=== PATIENT | male | born 1950 | race Caucasian/White ===

== ENCOUNTER 2016-11-12 10:27 | Day surgery (SDC) | payer MEDICARE, OTHER ==
[~2016-11-12 10:27] MED LIST: Buffered Lidocaine 1% SYRIN* 5 ML/SYR SYRINGE ONE; ceFAZolin 2 GM PREMIX(*) 2 GM/50 ML BAG IVPB ONE
[2016-11-12] MEDS ORDERED: Lidocain 1% EPI 1:100,000 * 30 ML MDV ONE ×2 (11:12→12:37)
[2016-11-12] MEDS ORDERED: fentaNYL* 50 MCG/ML 2 ML VIAL (100 MCG VIAL) ONE ×2 (11:56→12:38)
[2016-11-12] MEDS ORDERED: Propofol* 10 MG/ML 20 ML BTL IV PUSH ONE (11:57)
[2016-11-12] MEDS ORDERED: Midazolam* 1 MG/ML 2 ML VIAL (2 MG) ONE ×2 (11:57→12:23)
[2016-11-12] MEDS ORDERED: Iohexol 180 (CONTRAST) 10 ML SDV IV ONE (12:57)
--- NOTE | 2016-11-12 14:07 | RAD ---
Indication: Post RIGHT chest wall PowerPort placement. Assess for pneumothorax. Lymphoma. Comparison: October 29, 2016 PET/CT. Technique: Upright AP 1340 hours Report: Tip of the RIGHT chest port is at the level of the superior segment of the superior vena cava directed central. Negative for pneumothorax. Clear lungs and pleural spaces. The heart, pulmonary vasculature, and mediastinal contours are unremarkable. IMPRESSION: Negative for pneumothorax post RIGHT chest port placement. Tip of the RIGHT chest port is at the level of the superior segment of the superior vena cava directed central.
[2016-11-12 14:26] VITALS: BP 124/77
--- NOTE | 2016-11-12 15:19 | RAD ---
CPT II Codes: 6045F INDICATION: PowerPort placement. Fluoroscopic services provided for referring physician. 70.8 seconds of fluoroscopy time was used. 5 spot images of the chest demonstrates placement of a PowerPort with the tip in the superior vena cava. IMPRESSION: Fluoroscopic services provided for referring physician for PowerPort placement.
--- NOTE | 2016-11-13 06:04 | OP ---
CC: Cecil Lawson MD; Dr. Kip Broderick OPERATIVE REPORT: DATE OF PROCEDURE: 11/12/16 DATE OF : 48 SURGEON: Matt Higuera MD WELL PULLER HEAD: None. ANESTHESIOLOGIST: Dr. Benjamin. ANESTHESIA: Local MAC anesthesia. PRE-OP DIAGNOSIS: Esophageal cancer. POST-OP DIAGNOSIS: Esophageal cancer. OPERATIVE PROCEDURE: Insertion of PowerPort. ESTIMATED BLOOD LOSS: Minimal. FLUIDS: Minimal crystalloid fluid given. PORT: An 8-Gabonese PowerPort placed via the right subclavian vein. COMPLICATIONS: None. DESCRIPTION OF PROCEDURE: The patient was identified in the preoperative area, marked and brought t o the operating room and placed on the operating table in a supine position. Preoperative antibioti cs were given. Sequential devices were placed on bilateral lower extremities. Gentle sedation was given and the patient's right upper chest and neck were clipped of hair and then prepped and draped in a standard surgical fashion. A time-out was performed. Injection of lidocaine infraclavicularly was performed. The subclavian vein on the right was access ed. The wire was attempted to be inserted, noted to be curling within the vein and this was removed . Another access was then performed and a glidewire was inserted. It was able to be advanced into the superior vena cava under fluoroscopy. Next, the vein was dilated with the given dilators and a split- away catheter inserted. Next, the 8-Gabonese tubing was inserted and split-away catheter removed. Next, an incision inferior to this was made and a pocket made for the PowerPort. The tunnelling moi ce was utilized and tunneled from the pocket site to the tubing site. Tubing was then drawn in thro ugh this incision and cut to size and attached to the PowerPort. Under fluoroscopy, we did withdraw the tubing somewhat to identify the tip and we kept approximately 22 cm of tubing in. The PowerPort was then sutured into the pocket with 0 Surgipro sutures. The wound and port were the n irrigated and the port accessed and heparinized saline inserted. The original stick site was reapproximated with 4-0 Monocryl subcuticular sutures and the port site incision was reapproximated with 3-0 Polysorb sutures at the subcutaneous level followed by a 4-0 Mo nocryl subcuticular suture. Steri-Strips and sterile dressings were applied. The patient tolerated the procedure well and was transferred to the PACU in stable condition. Postop chest x-ray did rev eal that the tubing was placed in the proximal superior vena cava. Flow was good and the decision w as made to maintain this port at this time. [id number]/[facility] #: [id number]
== END 2016-11-12 14:30 | disposition home or self-care (01) ==
LOC: OR 10:27
PROVIDERS: ATTEND Surgery
DX: C15.5 Malignant neoplasm of lower third of esophagus (principal); Z87.891 Personal history of nicotine dependence; I10 Essential (primary) hypertension; R01.1 Cardiac murmur, unspecified; D56.3 Thalassemia minor
CPT/HCPCS: 71010; C1788; J0690; J1642; J2250; J2704; J3010

== ENCOUNTER 2018-11-10 19:33 | Inpatient (IN) | payer MEDICARE, OTHER ==
[2018-11-10] MEDS ORDERED: Magnesium Hydroxide LIQ* 30 ML UDC PO PRN (21:25)
[2018-11-10] MEDS ORDERED: Al Hydrox/Mg Hydrox/Simet LIQ* 30 ML UDC PO PRN (21:25)
[2018-11-10] MEDS ORDERED: Morphine 4 MG/ML VIAL (1 ml) 4 MG/ML VIAL IV PRN (21:25)
[2018-11-10] MEDS ORDERED: Acetaminophen TAB* 325 MG PO PRN (21:25)
[2018-11-10 22:23] LABS: Hematocrit 21 % (42-52); Mean Corpuscular HGB Conc 33 g/dL (31-36); Mean Corpuscular Hemoglobin 27 pg (27-31); Mean Corpuscular Volume 82 fL (80-94); Mean Platelet Volume 8.5 fL (7.4-10.4); Platelet Count 154 10^3/uL (150-450); Red Blood Count 2.62 10^6 /uL (4.18-5.48); Red Cell Distribution Width 19 % (10.5-15); White Blood Count 5.5 10^3/uL (3.5-10.8)
[2018-11-10 22:34] LABS: INR 1.19 (0.82-1.09)
[2018-11-10 22:38] LABS: ALT 9 U/L (7-52); AST 25 U/L (13-39); Albumin 2.8 g/dL (3.2-5.2); Albumin/Globulin Ratio 1.5 (1-3); Alkaline Phosphatase 97 U/L (34-104); BUN/Creatinine Ratio 14.8 (8-20); Blood Urea Nitrogen 43 mg/dL (6-24); CO2 Carbon Dioxide 22 mmol/L (22-32); Calcium 8.1 mg/dL (8.6-10.3); Chloride 110 mmol/L (101-111); EGFR African American 26.2 (>60); EGFR Non-African American 21.7 (>60); Globulin 1.9 g/dL (2-4); Glucose 111 mg/dL (70-100); Sodium 140 mmol/L (135-145); Total Protein 4.7 g/dL (6.4-8.9)
[2018-11-10 22:45] LABS: Anion Gap 8 mmol/L (2-11); Potassium 5.1 mmol/L (3.5-5.0)
[2018-11-10 22:46] LABS: Troponin I 2.08 ng/mL (<0.04)
[2018-11-10 22:53] LABS: ABS Lymphocytes 0.8 10^3/ul (1.0-4.8); ABS Monocytes 0.4 10^3/ul (0-0.8); ABS Neutrophils 4.7 10^3/ul (1.5-7.7); ABS Nucleated RBC 0.3 10^3/ul; Lymphocyte % 13.3 %; Nucleated Red Blood Cells % 5.4
[2018-11-11] MEDS ORDERED: Gabapentin CAP(*) 300 MG PO PRN (00:07)
--- NOTE | 2018-11-11 03:06 | HP ---
CC: Dr. Lawson HISTORY AND PHYSICAL: DATE OF ADMISSION/TRANSFER FROM [facility] FOR FURTHER HOSPITALIZATION: 11/10/18 PRIMARY CARE PROVIDER: Dr. Lawson REASON FOR TRANSFER: Elevated troponin. 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 At that point, he did not want to be transferred further to our facility. He was noted to have acute renal failure with creatinine of 2.7, urinalysis that was indicative of likely infection. He was treated with cefepime. He was tachycardiac and hypotensive on arrival. His hemoglobin was 4.9 and he received 2 units of packed red blood cells during the day on . His initial troponin was 0.04 and increased to 0.8 while staying at [facility]. Although the patient was asymptomatic, the provider at [facility] was concerned about the patient's cardiac status and requested a transfer to [facility] that occurred right after the patient's 2 unit of blood was transfused on 11/10/18. The patient arrived to ICU that evening. He currently feels comfortable. He denies any dizziness, no headache, no chest pain, no shortness of breath. PAST MEDICAL HISTORY: 1. 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 2. 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 3. Thalassemia minor with baseline hematocrit of about 40. 4. History of gout. 5. History of hypertension. 6. History of chronic back pain. 7. History of heart murmur ever since he was a teenager. ALLERGIES: Include HYDROCHLOROTHIAZIDE. CURRENT MEDICATIONS: From home include: 1. Meclizine 25 mg t.i.d. p.r.n. 2. Zofran 4 mg every 4 hours p.r.n. 3. Allopurinol 100 mg daily. 4. Aspirin 81 mg daily. 5. Fenofibrate 48 mg at bedtime. 6. Lipitor 10 mg q.a.m. 7. Gabapentin 300 mg 3 times a day. 8. Indomethacin 25 mg t.i.d. for gout, has not taken it recently. 9. Multivitamin 1 tablet daily. 10. Atenolol 200 mg daily. FAMILY HISTORY: Positive for niece with breast cancer. SOCIAL HISTORY: The patient lives alone. He names his sister as his healthcare proxy. Sister's name is Zaina Phipps. He has history of smoking 30-pack years, quit 19 years ago. He denies any alcohol or drug use. He is do not resuscitate. REVIEW OF SYSTEMS: Please see history of present illness. The patient stated that he had a similar presentation to [facility] approximately a month prior. At that point, he also had significant anemia and leukocytosis and was treated with empiric antibiotics and no source of infection was identified. The patient stated that he was told that his anemia is due to his chemotherapy. He has had black stools occasionally and he thought that it was due to his iron supplement that he takes occasionally. He has had melanotic stool for the past couple of days now. The patient stated that he has mild ankle edema in bilateral lower extremities and he uses MARISELA stockings for that. Due to his chemotherapy, he feels that he has no appetite and food does not taste well. He has lost weight for the past several months, but he could not quantify. 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 Currently, he denies shortness of breath or chest pain, but he has had problems with exercise tolerance recently and overall sensation of weakness and dizziness when standing up in past couple of days. All the remaining 12 systems were reviewed with the patient and were, otherwise , negative. PHYSICAL EXAMINATION GENERAL: The patient is a pleasant 68-year-old male who is in no acute distress. Alert, awake, and oriented x3. VITAL SIGNS: Blood pressure of 126/99, heart rate of 88 and regular, respiratory rate 17, oxygen saturation 100% on 3 L of oxygen nasal cannula, temperature of 97.1. HEENT: Head: Atraumatic, normocephalic. Eyes: Pupils are equal and reactive to light and accommodation. Oropharynx clear. Mucosa moist. NECK: Supple. No JVD. No bruits bilaterally. RESPIRATORY: Clear to auscultation bilaterally. CARDIOVASCULAR: Regular rate and rhythm with 3/6 systolic ejection murmur heard on auscultation of the right upper sternal border radiating to bilateral carotids. ABDOMEN: Soft, nontender. Bowel sounds present in all 4 quadrants. EXTREMITIES: There is trace bilateral ankle edema. Pulses are +2 bilaterally. No clubbing or cyanosis. NEUROLOGIC: On neuro evaluation, speech is clear. Cranial nerves II through XII grossly intact. Motor strength is 5/5 bilaterally. DIAGNOSTIC STUDIES/LAB DATA: Laboratory data showed white blood cell count of 5.5, hemoglobin of 7.0, hematocrit of 21, MCV of 82, and platelets of 154. The differential was unremarkable with 79% of neutrophils, 13 lymphocytes, 6 monocytes. INR was 1.19. Sodium was 140, potassium 5.1, chloride 110, carbon dioxide 22, BUN 43, creatinine 2.9. Liver function tests showed bilirubin of 1.1. AST of 25, ALT of 9, alkaline phosphatase of 97. The patient's troponin was 2.08. Lactic acid of 1.2. Some significant abnormalities from [facility] laboratory values showed lactic acid of 11 at admission. The patient's creatinine was 2.7, hemoglobin of 4.9, INR of 1.2, lactic acid of 11.5. The patient's portable chest x-ray obtained at [facility] was read as, "the lungs are clear, well aerated, mediastinal structures and hilar structures are normal. There is right subclavian vein central venous port with catheter which has developed loop in the catheter. Tip remains at the brachiocephalic junction level." The patient's EKG at [facility] showed normal sinus tachycardia with a heart rate of 97 beats per minute with left anterior fascicular block and no significant ST changes. Current EKG is pending at the time of dictation. ASSESSMENT AND PLAN: 1. The patient was hypotensive at [facility], was noted to have markedly elevated lactic acid, acute renal failure, abnormal urinalysis and white blood cell count of 13.14. He was diagnosed with severe sepsis at that point, treated with intravenous fluids and 2 units of packed red blood cell transfusion with good results and stabilization. The patient also was treated with cefepime. At this point, I will downgrade the patient's cefepime to ceftriaxone. We will await cultures obtained at [facility]. Currently, the patient is still hemodynamically stable, but once again the sepsis that was present at admission will be treated with ceftriaxone. 2. The patient has normocytic anemia that per the patient was related to his recent chemotherapy. Having said that, he has had melena occasionally for several days now. We will obtain stool Hemoccult. The patient is going to be placed on Protonix twice a day for the time being orally. We will check the patient's hemoglobin level in the morning. The patient received 2 units of packed red blood cells with good response with hemoglobin now up to 8. He is asymptomatic from cardiac standpoint. Although his troponins continued to still be positive, he also had acute renal failure, which likely is contributing to increase in troponin. At this point, I will not transfuse the patient anymore. I will await his claim clinician and oncologist's recommendations in the morning. 3. In regards to the patient's elevation of troponin, likely due to demand ischemia in combination with acute renal failure. Once again, so far he is asymptomatic from cardiac standpoint. We will obtain Echo, especially as the patient has significant heart murmur. Cardiology consult is going to be obtained in the morning. Aspirin is not going to be used due to history of melena as well as significant anemia. 4. The patient's acute renal failure. He had abnormal urinalysis at [facility]. He is going to be empirically treated with ceftriaxone and renal ultrasound is going to be obtained. It is possible that it is just related to ATN from hypotension and sepsis at admission. Please also note that the patient had no problems with urination whatsoever. 5. The patient's code status is do no resuscitate. 6. For DVT prophylaxis, due to the patient's significant anemia and history of melena, we will not start the patient on pharmacologic DVT prophylaxis but the patient is going to be placed on sequential compression devices. TIME SPENT: Approximately 80 minutes were spent on admission of this patient; more than half that time was spent [id number] with the patient during the interview and physical exam. [id number]/[facility] #: [id number] OREN
[2018-11-11 05:27] LABS: CO2 Carbon Dioxide 23 mmol/L (22-32); Calcium 8.1 mg/dL (8.6-10.3); Chloride 111 mmol/L (101-111); Sodium 140 mmol/L (135-145)
[2018-11-11 05:32] LABS: Anion Gap 6 mmol/L (2-11); BUN/Creatinine Ratio 19.1 (8-20); Blood Urea Nitrogen 49 mg/dL (6-24); EGFR African American 30.3 (>60); Glucose 99 mg/dL (70-100)
[2018-11-11 06:13] LABS: Troponin I 1.82 ng/mL (<0.04)
[2018-11-11 06:23] LABS: ABS Lymphocytes 0.7 10^3/ul (1.0-4.8); ABS Monocytes 0.3 10^3/ul (0-0.8); ABS Neutrophils 3.3 10^3/ul (1.5-7.7); ABS Nucleated RBC 0.1 10^3/ul; Hematocrit 21 % (42-52); Hemoglobin 6.7 g/dL (14.0-18.0); Lymphocyte % 15.9 %; Mean Corpuscular HGB Conc 33 g/dL (31-36); Mean Corpuscular Hemoglobin 26 pg (27-31); Mean Corpuscular Volume 81 fL (80-94); Mean Platelet Volume 8.4 fL (7.4-10.4); Nucleated Red Blood Cells % 3.3; Platelet Count 127 10^3/uL (150-450); Red Blood Count 2.53 10^6 /uL (4.18-5.48); Red Cell Distribution Width 20 % (10.5-15); White Blood Count 4.3 10^3/uL (3.5-10.8)
[2018-11-11] MEDS: NS 0.9% 1000 ML** 1,000 ML IV SCH (07:18)
[2018-11-11 07:24] LABS: Polychromasia 2+
[2018-11-11] MEDS: Atorvastatin* 10 MG TAB PO SCH (07:45)
[2018-11-11] MEDS: Allopurinol TAB* 100 MG PO SCH (07:45)
[2018-11-11] MEDS ORDERED: Pantoprazole TAB * 40 MG TAB PO SCH (09:00)
[2018-11-11] MEDS ORDERED: ATENOLOL 100 MG PO SCH (09:00)
[2018-11-11] MEDS ORDERED: ATENOLOL 200 MG PO SCH (09:00)
[2018-11-11] MEDS ORDERED: Atenolol TAB* 50 MG PO SCH (09:00)
--- NOTE | 2018-11-11 09:27 | PN ---
Progress Note - Progress Note Date of Service: 11/11/18 SOAP: Subjective: feels much better since getting blood. never had any chest pain. gets some midesophageal pain upon drinking cold stuff. reports he "only gets black stools " when he needs blood transfusions in the hospital. had a similar event last month at [facility]. he is on ramicurumab and taxol, last treated 11/02. Objective: Vital Signs Temp Pulse Resp BP Pulse Ox 97.7 F 74 17 143/82 100 11/11/18 07:29 11/11/18 09:00 11/11/18 09:00 11/11/18 09:00 11/11/18 09:00 perr eomi op moist CTA bl s1 s2 IV/ LUIS MIGUEL RUSB soft nt +Bs no le edema port right upper chest wall A+O x 3, nonfocal neurological exam Laboratory Results - last 24 hr 11/10/18 11/10/18 11/10/18 22:04 22:04 22:04 WBC 5.5 RBC 2.62 L Hgb 7.0 L Hct 21 L MCV 82 MCH 27 MCHC 33 RDW 19 H Plt Count 154 MPV 8.5 Neut % (Auto) 79.6 Lymph % (Auto) 13.3 [place] % (Auto) 6.6 Eos % (Auto) 0.0 Baso % (Auto) 0.5 Absolute Neuts (auto) 4.7 Absolute Lymphs (auto) 0.8 L Absolute Monos (auto) 0.4 Absolute Eos (auto) 0.0 Absolute Basos (auto) 0.0 Absolute Nucleated RBC 0.3 Nucleated RBC % 5.4 Polychromasia Anisocytosis INR (Anticoag Therapy) 1.19 H APTT 31.0 Sodium 140 Potassium 5.1 H Chloride 110 Carbon Dioxide 22 Anion Gap 8 BUN 43 H Creatinine 2.90 H Est GFR ( Amer) 26.2 Est GFR (Non-Af Amer) 21.7 BUN/Creatinine Ratio 14.8 Glucose 111 H Lactic Acid Calcium 8.1 L Total Bilirubin 1.10 H AST 25 ALT 9 Alkaline Phosphatase 97 CK-MB (CK-2) 9.0 H Troponin I 2.08 H* Total Protein 4.7 L Albumin 2.8 L Globulin 1.9 L Albumin/Globulin Ratio 1.5 11/10/18 11/11/18 11/11/18 22:04 04:46 06:10 WBC RBC Hgb Hct MCV MCH MCHC RDW Plt Count MPV Neut % (Auto) Lymph % (Auto) [place] % (Auto) Eos % (Auto) Baso % (Auto) Absolute Neuts (auto) Absolute Lymphs (auto) Absolute Monos (auto) Absolute Eos (auto) Absolute Basos (auto) Absolute Nucleated RBC Nucleated RBC % Polychromasia Anisocytosis INR (Anticoag Therapy) APTT Sodium 140 Potassium TNP TNP Chloride 111 Carbon Dioxide 23 Anion Gap 6 BUN 49 H Creatinine 2.56 H Est GFR ( Amer) 30.3 Est GFR (Non-Af Amer) 25.0 BUN/Creatinine Ratio 19.1 Glucose 99 Lactic Acid 1.2 Calcium 8.1 L Total Bilirubin AST ALT Alkaline Phosphatase CK-MB (CK-2) Troponin I 1.82 H* Total Protein Albumin Globulin Albumin/Globulin Ratio 11/11/18 06:10 WBC 4.3 RBC 2.53 L Hgb 6.7 L Hct 21 L MCV 81 MCH 26 L MCHC 33 RDW 20 H Plt Count 127 L MPV 8.4 Neut % (Auto) 77.2 Lymph % (Auto) 15.9 [place] % (Auto) 6.6 Eos % (Auto) 0.0 Baso % (Auto) 0.3 Absolute Neuts (auto) 3.3 Absolute Lymphs (auto) 0.7 L Absolute Monos (auto) 0.3 Absolute Eos (auto) 0.0 Absolute Basos (auto) 0.0 Absolute Nucleated RBC 0.1 Nucleated RBC % 3.3 Polychromasia 2+ Anisocytosis 2+ INR (Anticoag Therapy) APTT Sodium Potassium Chloride Carbon Dioxide Anion Gap BUN Creatinine Est GFR ( Amer) Est GFR (Non-Af Amer) BUN/Creatinine Ratio Glucose Lactic Acid Calcium Total Bilirubin AST ALT Alkaline Phosphatase CK-MB (CK-2) Troponin I Total Protein Albumin Globulin Albumin/Globulin Ratio Acetaminophen (Tylenol Tab*) 650 mg PO Q4H PRN PRN Reason: FEVER/PAIN Al Hydrox/Mg Hydrox/Simethicone (Maalox Plus*) 30 ml PO Q6H PRN PRN Reason: INDIGESTION Allopurinol (Zyloprim Tab*) 100 mg PO DAILY [facility] Last Admin: 11/11/18 07:45 Dose: 100 mg Atenolol (Tenormin Tab*) 200 mg PO DAILY [facility] Last Admin: 11/11/18 07:45 Dose: 200 mg Atorvastatin Calcium (Lipitor*) 10 mg PO QAM [facility] Last Admin: 11/11/18 07:45 Dose: 10 mg Fenofibrate (Tricor(Nf)) 48 mg PO BEDTIME [facility] Gabapentin (Neurontin Cap(*)) 300 mg PO TID PRN PRN Reason: PAIN - BACK Sodium Chloride (Ns 0.9% 1000 Ml) 1,000 mls @ 75 mls/hr IV PER RATE [facility] Last Admin: 11/11/18 07:18 Dose: 75 mls/hr Magnesium Hydroxide (Milk Of Magnesia Liq*) 30 ml PO Q4H PRN PRN Reason: CONSTIPATION Morphine Sulfate (Morphine 4 Mg/Ml Vial (1 Ml)) 1 mg IV Q4H PRN PRN Reason: PAIN - MILD Pantoprazole Sodium (Protonix Tab*) 40 mg PO BID [facility] Last Admin: 11/11/18 07:45 Dose: 40 mg Assessment: 68 yo M w remote DLBCL now with metastatic esophageal CA on Taxol/Ramicurumab a/ w weakness and a Hb of 4.9, with +troponins now trending down and no chest pain. He is having black stools and I am most suspicious for a GI bleed in the setting of a VEGF inhibitor. Plan: -NPO -IV PPI -GI consult -cardiology consult (cont bblcoker, statin, no ASA given bleeding) -stop abx, no sign of infection, suspect lactic acidosis from severe anemia and hypotension -transfuse 2 U prbc today with goal Hb of 9 given demand ischemia ARF: prerenal azotemia from anemia, though watch for signs of ATN from hypotension/ hypovolemia -blood and hydration DNR no dvt prophylaxis with bleeding cont IVU management
--- NOTE | 2018-11-11 10:40 | CONSULT ---
Subjective Date of Service: 11/11/18 Interval History: Admission Date: 11/10/18 Consult date: 11/11/2018 Service: Hospitalist CC: Weakness, dizziness Reason for consult: Elevated troponin level HISTORY OF PRESENT ILLNESS: Rayshawn Nevarez is a 68-year-old man with a history as below. He states unless it is day 15 of his chemo cycle he usually feels pretty good. When he is feeling well he can go up and down the stairs to the basement to do laundry twice in a row and would only be limited by back pain and can do without dyspnea or chest discomfort. He presented to [facility] and was found with severe anemia 4.9 hgb, PRASANNA with a creatinine of 2.7, intitial lactic acid of over 11 and a troponin which balaji eventually to ~ 2. He was transfused and is now asymptomatic. He denies any associated dyspnea or chest discomfort. Other than HTN and a cardiac murmur he has no prior cardiac history. He is noted to have dark stools. PAST MEDICAL HISTORY: 1. 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 2. 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 3. Thalassemia minor with baseline hematocrit of about 40. 4. History of gout. 5. History of hypertension. 6. History of chronic back pain. 7. History of heart murmur ever since he was a teenager. ALLERGIES: Include HYDROCHLOROTHIAZIDE. FAMILY HISTORY: Positive for niece with breast cancer. SOCIAL HISTORY: The patient lives alone. He names his sister as his healthcare proxy. Sister's name is Zaina Phipps. He has history of smoking 30-pack years, quit 19 years ago. He denies any alcohol or drug use. He is do not resuscitate. Medications Active Medications: Acetaminophen (Tylenol Tab*) 650 mg PO Q4H PRN PRN Reason: FEVER/PAIN Al Hydrox/Mg Hydrox/Simethicone (Maalox Plus*) 30 ml PO Q6H PRN PRN Reason: INDIGESTION Allopurinol (Zyloprim Tab*) 100 mg PO DAILY [facility] Last Admin: 11/11/18 07:45 Dose: 100 mg Atenolol (Tenormin Tab*) 200 mg PO DAILY [facility] Last Admin: 11/11/18 07:45 Dose: 200 mg Atorvastatin Calcium (Lipitor*) 10 mg PO QAM [facility] Last Admin: 11/11/18 07:45 Dose: 10 mg Fenofibrate (Tricor(Nf)) 48 mg PO BEDTIME [facility] Gabapentin (Neurontin Cap(*)) 300 mg PO TID PRN PRN Reason: PAIN - BACK Sodium Chloride (Ns 0.9% 1000 Ml) 1,000 mls @ 75 mls/hr IV PER RATE [facility] Last Admin: 11/11/18 07:18 Dose: 75 mls/hr Magnesium Hydroxide (Milk Of Magnesia Liq*) 30 ml PO Q4H PRN PRN Reason: CONSTIPATION Morphine Sulfate (Morphine 4 Mg/Ml Vial (1 Ml)) 1 mg IV Q4H PRN PRN Reason: PAIN - MILD Pantoprazole Sodium (Protonix Tab*) 40 mg PO BID [facility] Last Admin: 11/11/18 07:45 Dose: 40 mg Home Medications: Allopurinol TAB* [Zyloprim 100 MG TAB*] 100 mg PO DAILY 09/16/16 [History Confirmed 11/10/18] Aspirin 81 mg CHEW TAB* 81 mg PO DAILY 09/16/16 [History Confirmed 11/10/18] Atorvastatin* [Lipitor 10 MG*] 10 mg PO QAM 09/16/16 [History Confirmed 11/10/18 ] Fenofibrate(NF) [Tricor(NF)] 48 mg PO BEDTIME 09/16/16 [History Confirmed ] Gabapentin CAP(*) [Neurontin 300 CAP(*)] 300 mg PO TID PRN 09/16/16 [History Confirmed 11/10/18] Indomethacin CAP* [Indocin CAP*] 25 mg PO TID PRN 11/09/16 [History Confirmed ] Multiple Vitamin 50+ 1 tab PO DAILY 11/09/16 [History Confirmed 11/10/18] Atenolol [Tenormin 100 MG] 200 mg PO DAILY 11/10/18 [History Confirmed 11/10/18] Meclizine HCl [Eql Motion Sickness Relie] 25 mg PO TID PRN 11/10/18 [History Confirmed 11/10/18] Ondansetron [Ondansetron Odt] 4 mg PO Q4HR PRN 11/10/18 [History Confirmed 11/10] Review of Systems - Measurements Intake and Output: Intake and Output Last 24 Hours 11/09/18 11/10/18 11/11/18 11/12/18 06:59 06:59 06:59 06:59 Intake Total 320 250 Output Total 350 Balance 320 -100 Weight 214 lb Intake: Oral 320 250 Output: Urine 200 Liquid Stool 150 - Review of Systems Constitutional Symptoms: Positive: Weakness, Fatigue Negative: Weight Gain, Weight Loss Dermatology: Negative: Rash, Skin Lesions HEENT: Negative: Change in Hearing, Vertigo Eyes: Negative: Change in Vision, Double Vision Thyroid: Negative: Thyroid Nodule, Cold Intolerance, Heat Intolerance Pulmonary: Negative: Cough, Sputum, Hemoptysis Cardiology: Positive: Faintness Negative: Chest Pain, Shortness of Breath, Palpitations, Swelling of Ankles, Peripheral Vascular Dis, Edema, Syncope, Claudication, Paroxysmal Nocturnal Dyspnea, Orthopnea Gastroenterology: Negative: Abdominal Pain, Heartburn, Constipation, Diarrhea Genital - Urinary: Negative: Dysuria, Hematuria Musculoskeletal: Negative: Joint Stiffness, Arthritis Endocrinology: Positive: Obesity Negative: Polydipsia, Polyuria Hematologic/Lymphatic: Positive: Anemia, Use of Antiplatelet Drugs Negative: Hx Leukemia, Hx Lymphoma, Use of Anticoagulant Neurology: Negative: Diplopia, Dizziness, Hx of Stroke\TIA, Hx Seizures Psychiatry: Negative: Unusual Anxiety, Suicidal Ideation Allergic/Immunologic: Negative: Hx Anaphylaxis, Hx Angioedema, Hx HIV, Immunocompromise Review of Systems Statement: All other review of systems negative, unless stated above. Objective Vital Signs: Temp Pulse Resp BP Pulse Ox 97.7 F 78 17 134/72 100 11/11/18 07:29 11/11/18 10:06 11/11/18 10:17 11/11/18 10:06 11/11/18 10:06 Oxygen Devices in Use Now: Nasal Cannula Appearance: pale, nad, very pleasant Ears/Nose/Mouth/Throat: Clear Oropharnyx, Mucous Membranes Moist Neck: NL Appearance and Movements; NL JVP, Trachea Midline Respiratory: Symmetrical Chest Expansion and Respiratory Effort, Clear to Auscultation Cardiovascular: RRR, No Edema, - - 3/6 systolic murmur, soft s2 Abdominal: - - soft, obese, nontender Extremities: No Clubbing, Cyanosis Skin: No Rash or Ulcers Neurological: Alert and Oriented x 3 Laboratory Results: 11/11/18 06:10 11/11/18 09:20 cr this admission 2.9 down to 2.56 INR (Anticoag Therapy) 1.19 (0.82-1.09) H 11/10/18 22:04 APTT 31.0 seconds (26.0-36.3) 11/10/18 22:04 Total Bilirubin 1.10 mg/dL (0.2-1.0) H 11/10/18 22:04 AST 25 U/L (13-39) 11/10/18 22:04 ALT 9 U/L (7-52) 11/10/18 22:04 Alkaline Phosphatase 97 U/L (34-104) 11/10/18 22:04 CK-MB (CK-2) 9.0 ng/mL (0.6-6.3) H 11/10/18 22:04 Total Protein 4.7 g/dL (6.4-8.9) L 11/10/18 22:04 Albumin 2.8 g/dL (3.2-5.2) L 11/10/18 22:04 Globulin 1.9 g/dL (2-4) L 11/10/18 22:04 Albumin/Globulin Ratio 1.5 (1-3) 11/10/18 22:04 11/10/18 11/11/18 22:04 04:46 Troponin I 2.08 H* 1.82 H* EKG Data: ekg this AM NSR, old IWMI criteria, non-specific st/t changes Assessment/Plan 1. Severe chemotherapy related anemia - ? 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 Multisystem organ dysfunction - Secondary to #1 - PRASANNA, symptomatic cerebral hypoperfusion, lactic acidosis, myocyte injury as evidenced by an asymptomatic elevated troponin (vs. less likely but possible type 2 MT). Clinical presentation not consistent with a type 1 plaque disruption MT. - Suspect degree of myocardial injury overestimated by degree of renal insufficiency, ck-mb only 9, valvular heart disease could be contributing. 3. Cardiac murmur, suspect - May be louder and more clinically significant than baseline due to anemia. 4. HTN 5. Dyslipidemia Ok to hold aspirin for now Would try to keep hgb closer to ~ 9 Repeat EKG tomorrow Echo tomorrow Would focus acutely on anemia evaluation and treatment Thank you for allowing me to participate in the cardiovascular care of this patient. Please do not hesitate to contact me with questions or concerns.
[2018-11-11] MEDS ORDERED: fentaNYL* 50 MCG/ML 2 ML VIAL (100 MCG VIAL) ONE (16:34)
[2018-11-11] MEDS ORDERED: Midazolam* 1 MG/ML 10 ML VIAL (10 MG) ONE (16:34)
[2018-11-11] MEDS ORDERED: Pantoprazole IV* 40 MG IV ONE (18:16)
[2018-11-11 18:19] LABS: Hematocrit 27 % (42-52); Hemoglobin 8.6 g/dL (14.0-18.0)
--- NOTE | 2018-11-11 18:24 | CONS ---
CC: Dr. Sanjuanita Kelly; Dr. Matt Varela * CONSULTATION REPORT: DATE OF CONSULT: 11/11/18 REASON FOR CONSULT: Anemia, melena. HISTORY OF PRESENT ILLNESS: This is a very pleasant 68-year-old male with a past medical history of metastatic esophageal cancer, on Taxol and ramucirumab, who presented to [place] with dizziness and lightheadedness. He admits to dark stools at times. Denies any gross hematochezia. Denies any dysphagia or odynophagia. He was found to have a hemoglobin of 4.9 in [place], initially refused transfer; however, after a little bit of time, was agreeable to transfer for further workup. He was found to have renal insufficiency and demand -based ischemia. He was transferred to the ICU at [facility] for further management. His esophageal cancer was initially diagnosed in [address] Muro on endoscopy. He also has a history of diffuse large cell B lymphoma and thalassemia minor. He denies any abdominal pain. He states that his swallowing has been good. Once in a while if he eats a large piece of bread or food, he may have a little bit of difficulty, but he has had no fluid bolus or impactions. He is able to eat grossly normal diet without issue. He has been losing weight over the last month or two. He states that his appetite has not been quite the best over this time. He denies any diarrhea or constipation. Denies any nausea or emesis. He states at this point, he does not feel lightheaded or dizzy, and feels more appropriate at his baseline. Of note, his regimen was changed with the addition of a VEGF inhibitor recently. He denies any chest pain or dyspnea. The remainder of the 14-point review of systems is grossly negative. PAST MEDICAL HISTORY: 1. Esophageal cancer diagnosed in 2017 with metastasis to the liver. 2. Stage IV diffuse large B cell lymphoma in the past, status post R-CHOP. 3. History of thalassemia minor. 4. History of gout. 5. History of hypertension. 6. History of chronic back pain. HOME MEDICATIONS: Include: 1. Meclizine. 2. Zofran. 3. Allopurinol. 4. Aspirin. 5. Fenofibrate. 6. Lipitor. 7. Gabapentin. 8. Indomethacin. 9. Multivitamin. 10. Atenolol. ALLERGIES: Include HYDROCHLOROTHIAZIDE. FAMILY HISTORY: No family history of esophageal cancer or colorectal cancer. SOCIAL HISTORY: Healthcare proxy is his sister, Zaina Phipps. Prior smoking history, but quit 19 years ago. He denies any alcohol or drug use. REVIEW OF SYSTEMS: The remainder of the 14-point review of systems is grossly negative. OBJECTIVE: Vital Signs: Blood pressure is 131/64, pulse is 66, respiratory rate 14, he is 100% on room air. In general, he is alert and oriented x3, in no acute distress. HEENT: Atraumatic, normocephalic. Pupils equal, round, reactive to light. Extraocular movements are intact. Conjunctivae are pink. Neck: Supple. Trachea midline. Cardiovascular: S1 and S2. Systolic ejection murmur is appreciated. Abdomen: Soft, nontender. Bowel sounds positive. No guarding or rebound. Port appreciated on the right upper chest wall. Extremities: No clubbing. No cyanosis. No edema. Psych: Appropriate mood and affect. Skin: No gross ecchymosis noted or rash. DIAGNOSTIC STUDIES/LAB DATA: Hemoglobin at [place] was 4.9, on arrival to [facility] hemoglobin was 7.0, today was 6.7; platelet count is 127. INR 1.19. BUN 49, creatinine 2.56. Total bilirubin 1.10, AST 25, ALT is 9. Troponin I was 1.82, CK- MB is 9, CRP is 12, albumin is 2.8. Prior PET CT in September 2018 reveals hypermetabolic activity at the GE junction and cardia, prominent lymph node inferior to the GE junction, 3 hypermetabolic lesions in the liver which were improved from a prior study. Bilateral renal calculi and prominent right inguinal hernia. ASSESSMENT AND PLAN: This is a 68-year-old male with stage IV esophageal cancer , on a VEGF inhibitor, who is presenting with melena and anemia. 1. Acute blood loss anemia. We will plan on emergent upper endoscopy to rule out an upper gastrointestinal bleed. He is on a VEGF inhibitor which can increase the risk of arteriovenous malformations and bleeding. We discussed that if there is bleeding from the tumor, this can be difficult to control given the friability of the tumor; of there is a distinct ulceration or arteriovenous malformation, this will be easier to treat. Discussed the risks, benefits and alternatives to upper endoscopy and the patient would like to proceed. I discussed the case with Dr. Varela, the air brake adjuster, who saw the patient in consultation and felt to be as appropriate risk for upper endoscopy today. He has new thrombocytopenia. His previous platelet count has been in the 200s with a few dabbles below over the last 6 months. This is of unclear significance at this point. I recommend continuing to monitor H and H every 6 hours. Keep 2 units of PRBCs on hold at all times. Transfuse p.r.n. for goal above 7, perhaps higher with myocardial demand, 9 may be more appropriate; however, would defer to primary team. 2. History of stage IV esophageal cancer. The patient is able to swallow at this time. No signs of obstruction. 3. DNR status. The patient is in agreement to temporary suspend for procedure. [id number]/[facility] #: [id number] MTDD
--- NOTE | 2018-11-11 18:32 | PN ---
Progress Note - Progress Note Date of Service: 11/11/18 Note: GI EGD Note E: distal esophagus with large deep ulceration and nodular mass at GEJ. No active bleeding but residual old blood. LES patent G: large clot in gastric cardia, vigorously suctioned, but still limited views. Body and fundus with gastropathy and superficial erosions. No fresh blood. Old blood present. Non bleeding clean based 1cm gastric antral ulcer. treated with endoclip with great effect. no bleeding. D: 0.5 clean based ulceration in bulb. no fresh or old blood. Rec: Unclear if bled from ulcers vs. GEJ tumor. Will start on PPI drip bolus 80mg iv x 1 Monitor h/h transfuse PRN hemodynamics good if bleeding from tumor endoscopically very limited options. updated sister at bedside Discussed with Dr. Kelly. Mark Anthony Christie 11/11/18 [id number]
[2018-11-11] MEDS: Pantoprazole* 80 mg IN NS 80 MG/250 ML BAG IVPB SCH (19:20)
--- NOTE | 2018-11-11 20:51 | PRO ---
CC: Dr. Sanjuanita Kelly * EGD REPORT: DATE OF PROCEDURE: 11/11/18 PRIMARY ONCOLOGIST: Sanjuanita Kelly MD. INDICATION FOR PROCEDURE: Acute blood loss anemia, history of esophageal cancer. PROCEDURE PERFORMED: Complete esophagogastroduodenoscopy with hemostasis and Endo Clip placement. MEDICATIONS GIVEN: Include 10 mg IV midazolam, 25 mcg IV fentanyl. DESCRIPTION OF PROCEDURE: After the EGD procedure including the risks, benefits , and alternatives with the risks not limited to perforation, surgery, missed lesions and/or were explained to the patient, written informed consent was obtained, IV medication was given, and a bite block was placed between the teeth. The adult Olympus gastroscope was then inserted into the patient's oropharynx into the tubular esophagus. The upper portion of the esophagus was normal in appearance. To the distal 10 cm, there was large circumferential ulceration with a nodular mass at the GE junction; a few of these ulcerations were quite deep into the esophageal tissue. No active bleeding but some residual old blood was scattered throughout. The lower esophageal sphincter was patent with the scope easily traversing this area. Once in the stomach, a large clot was present in the gastric cardia. This was vigorously suctioned for over 30 to 40 minutes to reduce its volume and size. Despite this, some views are still limited in the gastric cardia, but no distinct ulceration was seen. The body and fundus of the stomach were with gastropathy and superficial erosions. No fresh blood was noted. Old blood again scattered throughout. A 1 cm clean based nonbleeding ulcer was in the antrum. This was treated with Endo Clip x1 with great effect. No bleeding post clip placement. The scope was advanced through a patent pylorus into the duodenal bulb. A small 0.5 cm clean based ulceration was noted. There was no fresh blood or old blood. I then advanced the endoscope through the C loop and the distal duodenum and pushed it as deep as I could. There was no further evidence of any fresh or old blood and no other ulcerations were noted. The scope was then removed from the patient. He tolerated the procedure well. He returned to the recovery room in stable condition. IMPRESSION: 1. Complete esophagogastroduodenoscopy with hemostasis and Endo Clip placement. 2. Gastric ulcer and duodenal ulcers, clean based, status post Endo Clip placement on large gastric ulcer. 3. No fresh bleeding, extensive residual clot throughout the stomach. 4. Large deep ulcerations within the distal esophagus and nodular mass at the GE junction; however, the LES does remain patent. RECOMMENDATIONS: Unclear if the bleed was from the ulcers or his GE junction tumor and associated ulcerations. At this point, there is no active bleeding. I will start the patient on an IV pantoprazole drip and give a bolus of 80 mg IV x1 now. Continue to monitor the H and H per cellophane worker's protocol, transfuse p.r.n. His current hemodynamics are good. If this is bleeding from the tumor, endoscopically there are very limited options for this. I updated his sister at the bedside and also updated Dr. Kelly with the findings. A copy of the photograph is in the chart. [id number]/[facility] #: [id number] [facility]OVE HOSPITALJayla
[2018-11-11] MEDS ORDERED: FENOFIBRATE 48 MG PO SCH (21:00)
[2018-11-11] MEDS ORDERED: Magnesium Sulfate 1 GM IV* 1 GM/100 ML BAG IV ONE (22:11)
[2018-11-11 23:39] LABS: Hematocrit 29 % (42-52); Hemoglobin 9.7 g/dL (14.0-18.0); Mean Corpuscular HGB Conc 33 g/dL (31-36); Mean Corpuscular Hemoglobin 29 pg (27-31); Mean Corpuscular Volume 86 fL (80-94); Mean Platelet Volume 8.2 fL (7.4-10.4); Platelet Count 102 10^3/uL (150-450); Red Blood Count 3.42 10^6 /uL (4.18-5.48); Red Cell Distribution Width 19 % (10.5-15); White Blood Count 3.2 10^3/uL (3.5-10.8)
[2018-11-11 23:55] LABS: BUN/Creatinine Ratio 29.1 (8-20); Calcium 8.1 mg/dL (8.6-10.3); EGFR African American 55.7 (>60); Magnesium 1.8 mg/dL (1.9-2.7); Potassium 4.1 mmol/L (3.5-5.0)
[2018-11-12 05:21] LABS: ABS Lymphocytes 0.5 10^3/ul (1.0-4.8); ABS Monocytes 0.3 10^3/ul (0-0.8); ABS Neutrophils 2.1 10^3/ul (1.5-7.7); ABS Nucleated RBC 0.1 10^3/ul; Eosinophil % 0.5 %; Hematocrit 30 % (42-52); Hemoglobin 9.5 g/dL (14.0-18.0); Lymphocyte % 18.9 %; Mean Corpuscular HGB Conc 32 g/dL (31-36); Mean Corpuscular Hemoglobin 28 pg (27-31); Mean Corpuscular Volume 87 fL (80-94); Mean Platelet Volume 8.4 fL (7.4-10.4); Nucleated Red Blood Cells % 4.1; Platelet Count 91 10^3/uL (150-450); Red Blood Count 3.38 10^6 /uL (4.18-5.48); Red Cell Distribution Width 19 % (10.5-15); White Blood Count 2.9 10^3/uL (3.5-10.8)
[2018-11-12 05:36] LABS: Albumin 2.5 g/dL (3.2-5.2); Albumin/Globulin Ratio 1.4 (1-3); BUN/Creatinine Ratio 29.8 (8-20); Calcium 7.8 mg/dL (8.6-10.3); EGFR African American 65.6 (>60); EGFR Non-African American 54.3 (>60); Globulin 1.8 g/dL (2-4); Total Bilirubin 0.9 mg/dL (0.2-1.0); Total Protein 4.3 g/dL (6.4-8.9)
[2018-11-12] MEDS: NS 0.9% 1000 ML** 1,000 ML IV SCH (05:49)
[2018-11-12] MEDS: Pantoprazole* 80 mg IN NS 80 MG/250 ML BAG IVPB SCH ×2 (05:49→16:17)
--- NOTE | 2018-11-12 08:09 | PN ---
Subjective Date of Service: 11/12/18 Interval History: Mr. Nevarez reports that he feels well this morning. He denies any complaint including chest pain, SOB, nausea, or abdominal pain. He is tolerating oral intake well. He is eager to have his diet advanced. He had a small amount of stool mixed with blood this morning. Objective Active Medications: Acetaminophen (Tylenol Tab*) 650 mg PO Q4H PRN Al Hydrox/Mg Hydrox/Simethicone (Maalox Plus*) 30 ml PO Q6H PRN Allopurinol (Zyloprim Tab*) 100 mg PO DAILY [facility] Atenolol (Tenormin Tab*) 200 mg PO DAILY [facility] Atorvastatin Calcium (Lipitor*) 10 mg PO QAM [facility] Fenofibrate (Tricor(Nf)) 48 mg PO BEDTIME [facility] Gabapentin (Neurontin Cap(*)) 300 mg PO TID PRN Sodium Chloride (Ns 0.9% 1000 Ml) 1,000 mls @ 75 mls/hr IV PER RATE [facility] Pantoprazole Sodium (Protonix Iv Bag*) 80 mg in 250 mls @ 25 mls/hr IVPB Q10H [facility] Magnesium Hydroxide (Milk Of Magnesia Liq*) 30 ml PO Q4H PRN Morphine Sulfate (Morphine 4 Mg/Ml Vial (1 Ml)) 1 mg IV Q4H PRN Vital Signs: Temp Pulse Resp BP Pulse Ox 97.4 F 55 15 116/63 100 11/12/18 04:00 11/12/18 06:00 11/12/18 06:00 11/12/18 06:00 11/12/18 06:00 Oxygen Devices in Use Now: Nasal Cannula Appearance: Male sitting on edge of bed in NAD Eyes: No Scleral Icterus Ears/Nose/Mouth/Throat: Mucous Membranes Moist Neck: NL Appearance and Movements; NL JVP Respiratory: Symmetrical Chest Expansion and Respiratory Effort, Clear to Auscultation Cardiovascular: No Edema, - - S1, S2, systolic murmur Abdominal: NL Sounds; No Tenderness; No Distention Extremities: No Edema Skin: No Rash or Ulcers Neurological: Alert and Oriented x 3, NL Muscle Strength and Tone Nutrition: Taking PO's - Nutrition: Malnutrition Diagnosis/Plan Malnutrition Assessment by Registered Dietitian: Malnutrition Assessment Clinical Characteristics Chronic,Severe Malnutrition Assessment: - 21% wt loss x ~ 7 months Criteria - < 75% estimated energy expenditure > 1 month Malnutrition Assessment: - Pt will not drink ensure/boost, but he does Interventions drink carnation instant breakfast. Encourage family to bring this in once diet is advanced. Malnutrition Assessment: Goals 1. As able, advance diet. Recommend soft w/o heart healthy restriction. 2. Ultimately, adequate nutrition to maintain lean body mass and hydration w/o additional undesired wt loss. Result Diagrams: 11/12/18 05:10 11/12/18 05:10 Microbiology and Other Data: . Assess/Plan/Problems-Billing Assessment: Ms. Nevarez is a 68 yo F with a PMH of stage esophageal cancer undergoing chemotherapy who was admitted on 11/10/18 to [facility] with concern for dizziness and lightheadedness thought initially to be septic from suspected UTI with PRASANNA, but then found to have anemia (Hgb 4.9) suspected secondary to GI bleed and elevated troponin with NSTEMI with Lactic Acid of 11, therefore transferred to [facility] on 10/12/18. - Patient Problems (1) GI bleed Comment: - Appreciate GI consult, upper endoscopy performed yesterday - Had areas suspicous for bleeding at GEJ tumor and gastric antral ulcer, no active bleed - Continue PPI infusion (2) NSTEMI (non-ST elevated myocardial infarction) Comment: - Troponin peaked at 2.08, suspect demand ischemia in setting of profound anemia - Has murmur, suspicious for as well, which could be contributing - Appreciate cardiology consult, echo pending - Continue statin and BB - Goal Hgb ~ 9 (3) Anemia Comment: - Hgb 9.5 s/p 5 transfusions (2 at [facility], 3 at [facility]) (4) PRASANNA (acute kidney injury) Comment: - Secondary to pre-renal azotemia - Resolving with blood transfusions, hydration, treatment of sepsis - Renal US negative for hydronephrosis (5) Hypertension Comment: - HR 50s - Continue atenolol at reduced dose with hold parameters (6) Esophageal cancer Comment: - Management per oncology (7) Leukopenia Comment: - WBC down to 2.9 - Monitor (8) DVT prophylaxis Comment: - SCDs (9) DNR (do not resuscitate) Comment: Status and Disposition: Inpatient. Disposition per oncology.
[2018-11-12] MEDS ORDERED: Perflutren Lipid Microsphere* 3 ML VIAL ONE (08:46)
[2018-11-12] MEDS ORDERED: Atenolol TAB* 50 MG PO SCH (09:00)
[2018-11-12] MEDS: Allopurinol TAB* 100 MG PO SCH (09:47)
[2018-11-12] MEDS: Atorvastatin* 10 MG TAB PO SCH (09:47)
--- NOTE | 2018-11-12 11:47 | ECHO ---
*[facility]* [place] [address] Fax #: [phone] Transthoracic Echocardiogram Patient: Roque, Height: 68 in / Rayshawn Bettencourt 172.7 cm : 1950 Weight: 213.6 lb Study Date: 11/12/2018 / 97.1 kg Age: 68 BP: 116 / 63 Gender: M BMI/BSA: 32.5 HR: 62 bpm kg/m^2 / 2.1 m^2 *Heel Gouger: * Kelsie George RDCS RN *Referring Physician: Sydney Avelar *Reading Physician: * Matt Varela MD Indications: Myocardial Infarction (new). History: Risk factors: Former tobacco use. Hypertension. Obese. Dyslipidemia. Lymphoma. Esophageal cancer. Chemotherapy. Radiation therapy. Conclusions Summary: 1. Left ventricle: The cavity size is normal. Wall thickness is mildly increased. Systolic function is mildly reduced. The estimated ejection fraction is 40-45%. 2. Regional wall motion abnormality: Hypokinesis of the mid anteroseptal, mid inferoseptal, apical inferior, apical septal, and apical myocardium. 3. Left atrium: The atrium is mildly to moderately dilated. 4. Aortic valve: The findings are consistent with moderate stenosis. Moderate to severe stenosis. Gradients performed with a hemoglobin of ~ 9.5. The mean systolic gradient is 31.0 mm Hg. The LVOT to aortic valve VTI ratio is 0.26. The valve area by the velocity-time integral method is 1.01 cm^2. The regurgitant peak velocity is 3.96 m/sec. Recommendations: None prior for comparison at time of interpretation Study data: Transthoracic echocardiogram. Procedure: Transthoracic echocardiography was performed. Image quality was fair. The study was technically limited due to body habitus. Intravenous Definity , 3 mlswas administered. Image enhancement administered by Complete 2D, spectral Doppler, and color flow Doppler. Patient status: Inpatient. Patient room number: ICU 1. Rhythm: Normal sinus rhythm. Findings Left ventricle: The cavity size is normal. Wall thickness is mildly increased. Systolic function is mildly reduced. The estimated ejection fraction is 40-45%. Regional wall motion abnormalities: Hypokinesis of the mid anteroseptal, mid inferoseptal, apical inferior, apical septal, and apical myocardium. Doppler parameters are consistent with abnormal left ventricular relaxation (grade 1 diastolic dysfunction). Right ventricle: The cavity size is normal. Systolic function is normal. Left atrium: The atrium is mildly to moderately dilated. Right atrium: The atrium is normal in size. Mitral valve: The leaflets are mildly thickened. There is no evidence of stenosis. There is mild regurgitation. Aortic valve: The valve is trileaflet. The leaflets are moderately calcified. Valve mobility is moderately restricted. The findings are consistent with moderate stenosis. There is mild regurgitation. Tricuspid valve: The valve is structurally normal. There is no evidence of stenosis. There is trace to mild regurgitation. Pulmonic valve: The valve is structurally normal. There is no evidence of stenosis. There is physiologic regurgitation. Aorta: Aortic root: The aortic root is not dilated. Ascending aorta: The ascending aorta is mildly dilated. Aortic arch: The aortic arch is not visualized. Pericardium: There is no pericardial effusion. Pulmonary arteries: Not well visualized. Systemic veins: Inferior vena cava: The vessel is normal in size. The respirophasic diameter changes are blunted (< 50%). Measurements Left ventricle Value Ref Aortic valve Value Ref ASHLEE, LAX 5.3 cm 4.2 - Kajal diam, ED 2.3 cm ---- 5.8 Kajal diam/bsa, ED 1.1 cm/m^2 ---- ESD, LAX 4.0 cm 2.5 - Peak v, S 3.6 m/sec ---- 4.0 VTI, S 93.3 cm ---- FS, LAX 25 % 25 - 43 Mean grad, S 31.0 mm Hg ---- PW, ED, LAX (H) 1.1 cm 0.6 - Peak grad, S 53.0 mm Hg ---- 1.0 LVOT/AV, VTI ratio 0.26 ---- IVS/PW, ED 1.07 -------- SEUN, VTI 1.01 cm^2 ---- E', lat kajal, TDI (L) 6.7 cm/sec >=10.0 SEUN, Vmax 1.05 cm^2 - --- E/e', lat kajal, TDI 11 -------- AR peak v 3.96 m/sec ---- E', med kajal, TDI (L) 6.1 cm/sec >=7.0 AR PHT 613 ms - --- E/e', med kajal, TDI 12 -------- AR peak grad 63 mm Hg ---- E', avg, TDI 6.4 cm/sec -------- E/e', avg, TDI 12 <=14 Mitral valve Value R ef Peak E 0.76 m/sec ---- LVOT Value Ref Peak A 0.83 m/sec ---- Diam, S 2.25 cm -------- Decel time 201 ms ---- Area 4.0 cm^2 -------- Peak grad, D 2.3 mm Hg ---- Peak bunny, S 0.95 m/sec -------- Peak E/A ratio 0.9 ---- VTI, S 23.8 cm -------- Peak grad, S 4 mm Hg -------- Pulmonic valve Value Ref Mean grad, S 2 mm Hg -------- Peak v, S 0.76 m/sec ---- SV 88 ml -------- Peak grad, S 2.0 mm Hg ---- Ventricular septum Value Ref Aortic root Value Ref IVS, ED (H) 1.2 cm 0.6 - Root max diam, ED 3.0 cm <4.2 1.0 Ascending aorta Value Ref Right ventricle Value Ref AAo AP diam, S 3.6 cm ---- ASHLEE, LAX 2.7 cm -------- ASHLEE minor ax, A4C 3.4 cm 1.9 - Inferior vena cava Value Ref mid 3.5 Diam 1.7 cm ---- Left atrium Value Ref ML dim, A4C 5.2 cm -------- SI dim, A4C 5.6 cm -------- Vol/bsa, ES, 1-p (H) 41 ml/m^2 12 - 37 A4C Vol/bsa, ES, A/L (H) 40 ml/m^2 16 - 34 Right atrium Value Ref ML dim, ES, A4C 4.0 cm 2.6 - 4.4 SI dim, ES, A4C 5.0 cm 3.4 - 5.3 Legend: (L) and (H) kisha values outside specified reference range. Prepared and electronically signed by Matt Varela MD 11/12/2018 11:39
--- NOTE | 2018-11-12 18:49 | PN ---
Subjective Date of Service: 11/12/18 Interval History: f/u type 2 DE, aortic stenosis Echo reviewed, diagnosis changed from myocyte injury to type 2 DE Tolerated EGD and multiple pRBC transfusions well from a cardiac standpoint No dyspnea or chest pain today tele: nsr, 32 beat monomorphic nsvt Medications Active Medications: Acetaminophen (Tylenol Tab*) 650 mg PO Q4H PRN PRN Reason: FEVER/PAIN Al Hydrox/Mg Hydrox/Simethicone (Maalox Plus*) 30 ml PO Q6H PRN PRN Reason: INDIGESTION Allopurinol (Zyloprim Tab*) 100 mg PO DAILY [facility] Last Admin: 11/12/18 09:47 Dose: 100 mg Atorvastatin Calcium (Lipitor*) 80 mg PO 2100 [facility] Gabapentin (Neurontin Cap(*)) 300 mg PO TID PRN PRN Reason: PAIN - BACK Sodium Chloride (Ns 0.9% 1000 Ml) 1,000 mls @ 75 mls/hr IV PER RATE [facility] Last Admin: 11/12/18 05:49 Dose: 75 mls/hr Pantoprazole Sodium (Protonix Iv Bag*) 80 mg in 250 mls @ 25 mls/hr IVPB Q10H [facility] Last Admin: 11/12/18 16:17 Dose: 25 mls/hr Magnesium Hydroxide (Milk Of Magnesia Liq*) 30 ml PO Q4H PRN PRN Reason: CONSTIPATION Metoprolol Succinate (Toprol Xl Tab*) 100 mg PO DAILY [facility] Morphine Sulfate (Morphine 4 Mg/Ml Vial (1 Ml)) 1 mg IV Q4H PRN PRN Reason: PAIN - MILD Objective Vital Signs: Temp Pulse Resp BP Pulse Ox 97.4 F 63 1 154/85 100 11/12/18 04:00 11/12/18 15:00 11/12/18 15:00 11/12/18 14:00 11/12/18 15:00 Oxygen Devices in Use Now: Nasal Cannula Appearance: pale, nad, very pleasant Ears/Nose/Mouth/Throat: Clear Oropharnyx, Mucous Membranes Moist Neck: NL Appearance and Movements; NL JVP, Trachea Midline Respiratory: Symmetrical Chest Expansion and Respiratory Effort, Clear to Auscultation Cardiovascular: RRR, No Edema, - - 3/6 systolic murmur, soft s2 Abdominal: - - soft, obese, nontender Extremities: No Clubbing, Cyanosis Skin: No Rash or Ulcers Neurological: Alert and Oriented x 3 Laboratory Results: 11/12/18 05:10 11/12/18 05:10 INR (Anticoag Therapy) 1.19 (0.82-1.09) H 11/10/18 22:04 APTT 31.0 seconds (26.0-36.3) 11/10/18 22:04 Total Bilirubin 0.90 mg/dL (0.2-1.0) 11/12/18 05:10 AST 21 U/L (13-39) 11/12/18 05:10 ALT 8 U/L (7-52) 11/12/18 05:10 Alkaline Phosphatase 91 U/L (34-104) 11/12/18 05:10 CK-MB (CK-2) 9.0 ng/mL (0.6-6.3) H 11/10/18 22:04 Total Protein 4.3 g/dL (6.4-8.9) L 11/12/18 05:10 Albumin 2.5 g/dL (3.2-5.2) L 11/12/18 05:10 Globulin 1.8 g/dL (2-4) L 11/12/18 05:10 Albumin/Globulin Ratio 1.4 (1-3) 11/12/18 05:10 11/10/18 11/11/18 22:04 04:46 Troponin I 2.08 H* 1.82 H* Diagnostic Imaging: Transthoracic Echocardiogram with definity Study Date: 11/12/2018 Summary: 1. Left ventricle: The cavity size is normal. Wall thickness is mildly increased. Systolic function is mildly reduced. The estimated ejection fraction is 40-45%. 2. Regional wall motion abnormality: Hypokinesis of the mid anteroseptal, mid inferoseptal, apical inferior, apical septal, and apical myocardium. 3. Left atrium: The atrium is mildly to moderately dilated. 4. Aortic valve: The findings are consistent with moderate stenosis. Moderate to severe stenosis. Gradients performed with a hemoglobin of ~ 9.5. The mean systolic gradient is 31.0 mm Hg. The LVOT to aortic valve VTI ratio is 0.26. The valve area by the velocity-time integral method is 1.01 cm^2. 11/11/2018 INDICATION FOR PROCEDURE: Acute blood loss anemia, history of esophageal cancer. PROCEDURE PERFORMED: Complete esophagogastroduodenoscopy with hemostasis and Endo Clip placement. MEDICATIONS GIVEN: Include: 1. 10 mg IV midazolam. 2. 25 mcg IV fentanyl. IMPRESSION: 1. Complete esophagogastroduodenoscopy with hemostasis and Endo Clip placement. 2. Gastric ulcer and duodenal ulcers, clean based, status post Endo Clip placement on large gastric ulcer. 3. No fresh bleeding, extensive residual clot throughout the stomach. 4. Large deep ulcerations within the distal esophagus and nodular mass at the GE junction; however, the LES does remain patent. EKG Data: ekg today nsr, lad, minimal st elevation v1/v2 Assessment/Plan 1. Severe chemotherapy related anemia 2. UGIB 3. Stage IV esophageal cancer with metastasis to the liver 4. Multisystem organ dysfunction with PRASANNA - Secondary to #1 - Improved 5. Type 2 DE - Strongly suspect underlying obstructive epicardial atherosclerotic CAD and ischemic cardiomyopathy LVEF 40-45% - No evidence of an acute type 1 plaque disruption DE 6. Moderate to severe aortic stenosis 7. NSVT 8. HTN 9. Dyslipidemia I had a long conversation with patient and his friend at bedside. I think the risks of cardiac revascularization in this situation outweigh the benefits and they are both in agreement. When his hemoglobin is better and he is in early chemo cycle he is essentially asymptomatic from a cardiac standpoint. Would recommend pursue medical management with the following: - Would try to keep hgb closer to ~ 9 or above residential although I do realize this may not be feasible - Once ok, if ever, from a GI standpoint would restart aspirin 81 mg po daily - D/c tricor and low dose lipitor and start lipitor 80 mg po daily with lipid panel tomorrow (ordered) - Change atenolol to toprol 100 mg po daily because of his LV dysfunction and metoprolol not renal cleared (ordered) - He had to have other BP medications discontinued as an outpatient because of hypotension and also with recent PRASANNA will not start AceI/ARB Thank you for allowing me to participate in the cardiovascular care of this patient. Please do not hesitate to contact me with questions or concerns.
[2018-11-12] MEDS ORDERED: Atorvastatin* 80 MG TAB PO SCH (21:00)
[2018-11-13] MEDS: Pantoprazole* 80 mg IN NS 80 MG/250 ML BAG IVPB SCH (03:09)
[2018-11-13 06:49] LABS: Hematocrit 31 % (42-52); Hemoglobin 10.1 g/dL (14.0-18.0); Mean Corpuscular HGB Conc 33 g/dL (31-36); Mean Corpuscular Hemoglobin 28 pg (27-31); Mean Corpuscular Volume 87 fL (80-94); Mean Platelet Volume 8.3 fL (7.4-10.4); Platelet Count 118 10^3/uL (150-450); Red Blood Count 3.62 10^6 /uL (4.18-5.48); Red Cell Distribution Width 19 % (10.5-15); White Blood Count 3.1 10^3/uL (3.5-10.8)
[2018-11-13 07:03] LABS: Calcium 8.3 mg/dL (8.6-10.3); EGFR African American 89.6 (>60); EGFR Non-African American 74.1 (>60); Potassium 4.1 mmol/L (3.5-5.0)
--- NOTE | 2018-11-13 08:07 | PN ---
Subjective Date of Service: 11/13/18 Interval History: f/u type 2 MS, aortic stenosis No chest pain or dyspnea tele: nsr, no arrhythmias overnight Medications Active Medications: Acetaminophen (Tylenol Tab*) 650 mg PO Q4H PRN PRN Reason: FEVER/PAIN Al Hydrox/Mg Hydrox/Simethicone (Maalox Plus*) 30 ml PO Q6H PRN PRN Reason: INDIGESTION Allopurinol (Zyloprim Tab*) 100 mg PO DAILY [facility] Last Admin: 11/12/18 09:47 Dose: 100 mg Atorvastatin Calcium (Lipitor*) 80 mg PO 2100 [facility] Last Admin: 11/12/18 20:15 Dose: 80 mg Gabapentin (Neurontin Cap(*)) 300 mg PO TID PRN PRN Reason: PAIN - BACK Sodium Chloride (Ns 0.9% 1000 Ml) 1,000 mls @ 75 mls/hr IV PER RATE [facility] Last Admin: 11/12/18 05:49 Dose: 75 mls/hr Pantoprazole Sodium (Protonix Iv Bag*) 80 mg in 250 mls @ 25 mls/hr IVPB Q10H [facility] Last Admin: 11/13/18 03:09 Dose: 25 mls/hr Magnesium Hydroxide (Milk Of Magnesia Liq*) 30 ml PO Q4H PRN PRN Reason: CONSTIPATION Metoprolol Succinate (Toprol Xl Tab*) 100 mg PO DAILY [facility] Morphine Sulfate (Morphine 4 Mg/Ml Vial (1 Ml)) 1 mg IV Q4H PRN PRN Reason: PAIN - MILD Objective Vital Signs: Temp Pulse Resp BP Pulse Ox 98.2 F 63 16 129/62 97 11/13/18 03:05 11/13/18 03:05 11/13/18 03:05 11/13/18 03:05 11/13/18 03:05 Oxygen Devices in Use Now: Nasal Cannula Appearance: pale, nad, very pleasant Ears/Nose/Mouth/Throat: Clear Oropharnyx, Mucous Membranes Moist Neck: NL Appearance and Movements; NL JVP, Trachea Midline Respiratory: Symmetrical Chest Expansion and Respiratory Effort, Clear to Auscultation Cardiovascular: RRR, No Edema, - - 3/6 systolic murmur, soft s2 Abdominal: - - soft, obese, nontender Extremities: No Clubbing, Cyanosis Skin: No Rash or Ulcers Neurological: Alert and Oriented x 3 Laboratory Results: 11/13/18 05:58 11/13/18 05:58 INR (Anticoag Therapy) 1.19 (0.82-1.09) H 11/10/18 22:04 APTT 31.0 seconds (26.0-36.3) 11/10/18 22:04 Total Bilirubin 0.90 mg/dL (0.2-1.0) 11/12/18 05:10 AST 21 U/L (13-39) 11/12/18 05:10 ALT 8 U/L (7-52) 11/12/18 05:10 Alkaline Phosphatase 91 U/L (34-104) 11/12/18 05:10 CK-MB (CK-2) 9.0 ng/mL (0.6-6.3) H 11/10/18 22:04 Total Protein 4.3 g/dL (6.4-8.9) L 11/12/18 05:10 Albumin 2.5 g/dL (3.2-5.2) L 11/12/18 05:10 Globulin 1.8 g/dL (2-4) L 11/12/18 05:10 Albumin/Globulin Ratio 1.4 (1-3) 11/12/18 05:10 11/10/18 11/11/18 22:04 04:46 Troponin I 2.08 H* 1.82 H* Diagnostic Imaging: Transthoracic Echocardiogram with definity Study Date: 11/12/2018 Summary: 1. Left ventricle: The cavity size is normal. Wall thickness is mildly increased. Systolic function is mildly reduced. The estimated ejection fraction is 40-45%. 2. Regional wall motion abnormality: Hypokinesis of the mid anteroseptal, mid inferoseptal, apical inferior, apical septal, and apical myocardium. 3. Left atrium: The atrium is mildly to moderately dilated. 4. Aortic valve: The findings are consistent with moderate stenosis. Moderate to severe stenosis. Gradients performed with a hemoglobin of ~ 9.5. The mean systolic gradient is 31.0 mm Hg. The LVOT to aortic valve VTI ratio is 0.26. The valve area by the velocity-time integral method is 1.01 cm^2. 11/11/2018 INDICATION FOR PROCEDURE: Acute blood loss anemia, history of esophageal cancer. PROCEDURE PERFORMED: Complete esophagogastroduodenoscopy with hemostasis and Endo Clip placement. MEDICATIONS GIVEN: Include: 1. 10 mg IV midazolam. 2. 25 mcg IV fentanyl. IMPRESSION: 1. Complete esophagogastroduodenoscopy with hemostasis and Endo Clip placement. 2. Gastric ulcer and duodenal ulcers, clean based, status post Endo Clip placement on large gastric ulcer. 3. No fresh bleeding, extensive residual clot throughout the stomach. 4. Large deep ulcerations within the distal esophagus and nodular mass at the GE junction; however, the LES does remain patent. EKG Data: ekg today nsr, lad, minimal st elevation v1/v2 Assessment/Plan 1. Severe chemotherapy related anemia 2. UGIB 3. Stage IV esophageal cancer with metastasis to the liver 4. Multisystem organ dysfunction with PRASANNA - Secondary to #1 - Improved 5. Type 2 MS - Strongly suspect underlying obstructive epicardial atherosclerotic CAD and ischemic cardiomyopathy LVEF 40-45% - No evidence of an acute type 1 plaque disruption MS 6. Moderate to severe aortic stenosis 7. NSVT 8. HTN 9. Dyslipidemia - Would try to keep hgb closer to ~ 9 or above emt intermediate - Once ok, if ever, from a GI standpoint would restart aspirin 81 mg po daily - Continue lipitor 80 mg po daily, check lipid panel tomorrow (ordered) - Continue toprol 100 mg po daily - He had to have other BP medications discontinued as an outpatient because of hypotension and also with recent PRASANNA will not start AceI/ARB - At risk for developing HF, will d/c IV fluid for now (ordered) Thank you for allowing me to participate in the cardiovascular care of this patient. Please do not hesitate to contact me with questions or concerns.
[2018-11-13 08:27] LABS: ABS Lymphocytes 0.6 10^3/ul (1.0-4.8); ABS Monocytes 0.3 10^3/ul (0-0.8); ABS Neutrophils 2.1 10^3/ul (1.5-7.7); ABS Nucleated RBC 0.1 10^3/ul; Eosinophil % 0.3 %; Lymphocyte % 18.1 %; Nucleated Red Blood Cells % 2.9
[2018-11-13] MEDS: Allopurinol TAB* 100 MG PO SCH (08:35)
[2018-11-13] MEDS ORDERED: Metoprolol Succinate XL TAB* 100 MG PO SCH (09:00)
[2018-11-13 12:03] VITALS: BP 150/76
--- NOTE | 2018-11-15 22:32 | DS ---
CC: Dr. Lawson; Dr. Varela; Dr. Christie DISCHARGE SUMMARY: DATE OF ADMISSION: 11/10/18 DATE OF DISCHARGE: 11/13/18 PRIMARY ONCOLOGIST: Dr. Cecil Lawson. CONSULTING JUNIOR MEDIA BUYER: Dr. Christie. CONSULTING GOLD BEATER: Dr. Varela. DISCHARGING PROVIDER: DAVIS Rivera PRIMARY DISCHARGE DIAGNOSES: 1. Gastrointestinal bleed secondary to friable distal esophageal tumor and gastric ulcers. 2. [id number] myocardial infarction secondary to poor coronary perfusion and secondary to acut e blood loss anemia and aortic stenosis. 3. Acute kidney injury secondary to acute blood loss anemia. 4. Metastatic esophageal cancer. DISCHARGE MEDICATIONS: 1. Allopurinol 100 mg p.o. daily. 2. Atorvastatin 10 mg p.o. daily. 3. Fenofibrate 40 mg p.o. at bedtime. 4. Gabapentin 300 mg p.o. 3 times daily. 5. Indomethacin 25 mg p.o. 3 times daily as needed. 6. Meclizine 25 mg p.o. t.i.d. as needed. 7. Multivitamin 1 tablet p.o. daily. 8. Ondansetron 4 mg p.o. q.4 hours as needed for nausea. 9. Metoprolol succinate 100 mg p.o. daily. 10. Protonix 40 mg p.o. twice daily. HOSPITAL IMAGING: Renal ultrasound 11/11/18 shows renal cyst, no hydronephrosis. HOSPITAL COURSE: This is a pleasant 68-year-old gentleman with metastatic esophageal cancer under e care of Dr. Lawson, recently treated with ramucirumab and Taxol, who presented to [facility] with complaints of dizziness and lightheadedness. He was noted to have a hemoglobin of 4.9 and subse quently received 2 units of packed red blood cells. His initial troponin was 0.04, but later increas ed to 0.8, at which point a request for transfer was made from [facility] to [facility]. The patient was accepted and transferred by Dr. Clements. The patient did not experience any comp laints of chest pain. Following transfer from [place], the patient received an additional 3 units of packed red blood cell s. His hemoglobin at the time that he reached [facility] was 7.0 g/dL. Creatinine was 2. 9 with a baseline of 1.17. His troponin peaked at 2.08. The patient was seen by Gastroenterology as well as Cardiology. He underwent EGD on the evening of 11/11/18. The patient was found to have exte nsive residual clots within his stomach with multiple gastric and duodenal ulcers as well as a nodula r mass at the GE junction. There was no active bleeding at the time of endoscopy. Largest of the ul cerations were clipped at that time and the patient was subsequently treated with Protonix drip. Cardiac evaluation included a transthoracic echocardiogram which showed an EF of 40% to 45% with some regional wall motion abnormality and moderate to severe aortic stenosis. His acute CO was felt to m ost likely be a type 2 event secondary to hypoperfusion related to his acute blood loss anemia exacer bated by aortic stenosis. The patient's creatinine improved to baseline at 1.0 at the time of discharge and hemoglobin at 10.1. He reported that his melena had resolved and had no abdominal pain and he was able to eat a regular diet without complaint. DISPOSITION AND FOLLOWUP PLAN: The patient is being discharged to home in stable condition where he lives alone. He will follow up with Dr. Lawson for a repeat CBC and further treatment planning tomorr ow. At this time, we will plan to discontinue ramucirumab and consider palliative radiation to the d istal esophagus to prevent further bleeding. DAVIS RIVERA [id number]/[facility] #: [id number]
== END 2018-11-13 13:00 | disposition home or self-care (01) | DRG 981 ==
LOC: ICU 21:14 → MEDTELE 11-12 08:37
PROVIDERS: ADMIT Internal Medicine; ATTEND Internal Medicine Hematology & Oncology
PROC: 0DQ68ZZ Repair Stomach, Via Natural or Artificial Opening Endoscopic (ICD-10-PCS; principal; 2018-11-11)
PROC: 30233N1 Transfusion of Nonautologous Red Blood Cells into Peripheral Vein, Percutaneous Approach (ICD-10-PCS; 2018-11-11)
DX: D64.81 Anemia due to antineoplastic chemotherapy (principal); I21.A1 Myocardial infarction type 2; N17.9 Acute kidney failure, unspecified; C78.7 Secondary malignant neoplasm of liver and intrahepatic bile duct; I47.1 Supraventricular tachycardia; C15.5 Malignant neoplasm of lower third of esophagus; K92.1 Melena; K22.10 Ulcer of esophagus without bleeding; K26.9 Duodenal ulcer, unspecified as acute or chronic, without hemorrhage or perforation; T45.1X5A Adverse effect of antineoplastic and immunosuppressive drugs, initial encounter; I25.10 Atherosclerotic heart disease of native coronary artery without angina pectoris; I35.0 Nonrheumatic aortic (valve) stenosis; Z66 Do not resuscitate; I10 Essential (primary) hypertension; E78.5 Hyperlipidemia, unspecified; M54.9 Dorsalgia, unspecified; M10.9 Gout, unspecified; K25.9 Gastric ulcer, unspecified as acute or chronic, without hemorrhage or perforation; Z85.72 Personal history of non-Hodgkin lymphomas; Z87.891 Personal history of nicotine dependence; Z92.3 Personal history of irradiation; Z80.3 Family history of malignant neoplasm of breast; Y92.9 Unspecified place or not applicable
CPT/HCPCS: 36415; 76775; 80048; 80053; 82272; 82553; 83605; 83735; 84484; 85014; 85018; 85025; 85027; 85610; 85730; 86850; 86900; 86901; 86922; 87641; 93005; 93306; 99156; 99157; 99233; 99239; A9270-GY; C8929; J1642; J2250; J3010; J3475; P9040